=== PATIENT | female | born 1990 | race Caucasian/White ===

== ENCOUNTER 2018-03-20 13:04 | Inpatient (IN) | payer BC ==
[2018-03-20 13:27] VITALS: BMI 30.1
[2018-03-20] MEDS ORDERED: Butorphanol Tartrate 1 MG/ML VIAL SLOW IVP PRN (14:49)
[2018-03-20] MEDS ORDERED: Ondansetron HCl/PF 4 MG/2 ML Vial IVP PRN ×3 (14:49→15:28)
[2018-03-20] MEDS ORDERED: Ibuprofen 800 MG TAB PO PRN (14:49)
[2018-03-20] MEDS ORDERED: Lidocaine 1% (PF) 30 ML VIAL SC PRN (14:49)
[2018-03-20] MEDS ORDERED: NS / Oxytocin 40 units/1000ml 1,000 ML IV PRN (14:49)
[2018-03-20 14:56] LABS: Hemoglobin 12.3 g/dL (12.0-16.0); Mean Corpuscular HGB CONC 33.8 g/dL (32.0-36.0); Mean Corpuscular Hemoglobin 30.3 pg (27.0-31.0); Mean Corpuscular Volume 89.7 fL (78.0-98.0); Mean Platelet Volume 8.5 fL (7.4-10.4); Platelet Count 247 thou/uL (130-400); RBC Distribution Width 12.2 % (11.5-14.5); Red Blood Cell (RBC) Count 4.04 mill/uL (4.20-5.40); White Blood Cell (WBC) Count 17.2 thou/uL (4.8-10.8)
[2018-03-20] MEDS ORDERED: Fentanyl 4 mcg/Bup 0.1% Cadd 100 ML ONE ×2 (14:58→22:22)
[2018-03-20] MEDS ORDERED: Lactated Ringer's 1,000 ML IV SCH (15:00)
[2018-03-20 15:27] LABS: HBSAg Index 0.18 S/CO (0-0.99); Hep B Surf Ag Non-Reactive S/CO (NonReactive); Syphilis Antibody Nonreactive (Nonreactive); Syphilis Antibody Index 0.04 S/CO (<1.00 Non-Reactive)
[2018-03-20] MEDS ORDERED: ePHEDrine/0.9% NaCl/PF SYRINGE 50 mg/10 ml SLOW IVP PRN ×2 (15:28)
[2018-03-20] MEDS ORDERED: diphenhydrAMINE 50 MG/ML VIAL IVP PRN ×2 (15:28)
[2018-03-20] MEDS ORDERED: Naloxone HCl 0.4 mg/ml Vial IVP PRN ×4 (15:28)
[2018-03-20] MEDS ORDERED: Promethazine HCl 25 MG/ML VIAL IM PRN ×2 (15:28)
[2018-03-20] MEDS ORDERED: Lactated Ringer's 500 ML IV PRN ×2 (15:28)
[2018-03-20] MEDS ORDERED: Acetaminophen 325 MG TAB PO PRN ×2 (15:28)
[2018-03-20] MEDS ORDERED: Eucerin (Mineral Oil/Petrolatum,White) 30 gm Jar TOP PRN ×2 (15:28)
[2018-03-20] MEDS ORDERED: Fentanyl 4 mcg/Bupivacaine 0.1% Cassette 100 ML EPIDURAL SCH (15:30)
[2018-03-20] MEDS ORDERED: Communication Order-Pharmacy FS SCH ×2 (15:30)
--- NOTE | 2018-03-20 15:55 | PDOC.LDHP ---
Labor and Delivery H&P Chief complaint: contractions HPI: 28 yo G1 @ 40w4d by LMP c/w 8 week CRL. Antepartum course benign. Current gestational age (weeks): 40 Due date: 03/16/18 Dating criteria: last menstrual period Grav: 1 Para: 0 Current complications: none Abnormal US findings: No Past Medical History: Denies Current medications: pre-emmanuel vitamins Previous surgical history: none Allergies/Adverse Reactions: Allergies Allergy/AdvReac Type Severity Reaction Status Date / Time No Known Allergies Allergy Verified 03/20/18 13:28 Social history: none - Physical Exam Vital signs reviewed and normal: yes General: NAD Heart: RRR Lungs: CTAB Abdomen: gravid Extremeties: no edema FHT: category 1 (150s, mod tegan, occasional varaible decels that resolve) [place] contractions every: q3-4 min - Vaginal Exam cm dilated: 4 (cephalic) Effacement: 75% Station: -1 - OB Labs Blood type: A RH: positive Antibody Screen: negative HIV: negative RPR: negative HEPSAg: negative 1 hour GCT: negative GBS: negative Urine drug screen: not done Rubella: immune Additional Labs: SS wnl - Assessment 40w4d IUP Latent labor - Plan Plan: admit to L&D, labor augmentation if indicated (start pitocin), informed consent obtained, anesthesia consult for pain management
[2018-03-20] MEDS ORDERED: NS w/ Oxytocin 10 units 500 ML IV SCH (17:00)
[2018-03-20] MEDS: Lactated Ringer's 1,000 ML IV SCH ×2 (17:16→22:00)
[2018-03-21] MEDS ORDERED: CEFAZOLIN/Water 2 GM/20 ML SYRINGE ONE (05:18)
--- NOTE | 2018-03-21 05:21 | PDOC.LDPN ---
Labor & Delivery Progress Note - Subjective Subjective: comfortable - Objective Vital signs reviewed and normal: yes General: NAD Uterine fundus: non tender Dilation: 10 Effacement: 100% Station: 2+ FHT: category 2 (170s, min tegan, late decels, no acels ) [place] contractions every: q2-3 min Resuscitative measures: maternal oxygen, maternal IV fluids, maternal position change - Assessment (1) 40 weeks gestation of Code(s): Z3A.40 - 40 WEEKS GESTATION OF Current Visit: Yes Status : Acute (2) Prolonged second stage (of labor) Code(s): O63.1 - PROLONGED SECOND STAGE (OF LABOR) Current Visit: Yes Status : Acute (3) Non-reassuring heart rate with late deceleration Code(s): O36.8390 - MATERN CARE FOR ABNLT FETL HRT RATE OR RHYM, UNSP TRI, UNSP Current Visit: Yes Status: Acute -: Reviewed with pt protracted labor course and now prolonged second stage with maternal exhaustion. Due to cat 2 tracing, recommended more expedited delivery. Forceps attempted to be placed after discussion with pt of options and R/B/A/I of each, however, will not articulate properly, like due to slight asynclytic OP position. Due to this, forceps not performed and PLTCS recommended. Pt amenable. Ancef and Azithromycin for PPX.
[2018-03-21] MEDS ORDERED: Methylergonovine 0.2 MG/ML VIAL IM PRN ×2 (05:28→10:12)
[2018-03-21] MEDS ORDERED: Carboprost 250 MCG/ML AMP IM PRN (05:28)
[2018-03-21] MEDS ORDERED: Bupivacaine 0.5% 10 ML VIAL ONE (05:28)
[2018-03-21] MEDS ORDERED: Azithromycin 500 MG in Sodium Chloride 0.9% 250 ML 250 ML IVPB SCH (05:30)
[2018-03-21] MEDS ORDERED: CEFAZOLIN/Water 2 GM/20 ML SYRINGE SLOW IVP SCH (05:30)
[2018-03-21] MEDS ORDERED: Ondansetron HCl/PF 4 MG/2 ML Vial ONE (05:36)
[2018-03-21] MEDS ORDERED: Oxytocin 10 UNITS/ML VIAL ONE ×3 (05:36→05:59)
[2018-03-21] MEDS ORDERED: Morphine PF 1 MG/ML SYR ONE (05:36)
[2018-03-21] MEDS ORDERED: PHENYLEPHRINE-NS 100 MCG/ML 10 ML SYRINGE ONE (05:36)
[2018-03-21] MEDS ORDERED: Promethazine HCl 25 MG/ML VIAL IM PRN (05:55)
[2018-03-21] MEDS ORDERED: diphenhydrAMINE 50 MG/ML VIAL IVP PRN (05:55)
[2018-03-21] MEDS ORDERED: Eucerin (Mineral Oil/Petrolatum,White) 30 gm Jar TOP PRN (05:55)
[2018-03-21] MEDS ORDERED: Meperidine HCl/PF 25 MG/ML VIAL SLOW IVP PRN (05:55)
[2018-03-21] MEDS ORDERED: Promethazine HCl 25 MG SUPP PR PRN (05:55)
[2018-03-21] MEDS ORDERED: L&D-Morphine 4 MG/ML VIAL SLOW IVP PRN (05:55)
[2018-03-21] MEDS ORDERED: Ketorolac Tromethamine 30 MG/ML VIAL IVP PRN (05:55)
[2018-03-21] MEDS ORDERED: HYDROmorphone 2 MG/ML VIAL SLOW IVP PRN (05:55)
[2018-03-21] MEDS ORDERED: Naloxone HCl 0.4 mg/ml Vial IV PRN (05:55)
[2018-03-21] MEDS ORDERED: Naloxone HCl 0.4 mg/ml Vial IVP PRN ×2 (05:55)
[2018-03-21] MEDS ORDERED: Methylergonovine 0.2 MG/ML VIAL ONE (05:56)
[2018-03-21] MEDS ORDERED: Ketorolac Tromethamine 30 MG/ML VIAL IVP SCH (06:00)
[2018-03-21] MEDS ORDERED: Communication Order-Pharmacy FS SCH (06:00)
[2018-03-21 06:14] LABS: Actual Bicarbonate (HCO3v) 20 mEq/L (22-28); Analyzer IN Cardio OR; Base Excess -4.9 mEq/L (-2.0 to +3.0); pH (Cord, venous) 7.34 (7.32-7.43)
--- NOTE | 2018-03-21 06:37 | PDOC.OPDEL ---
OB Operative/Delivery Note Delivery Dr/Surgeon: Maria Elena Nash DO Assist: Armando Merchant MD Pre-Delivery Diagnosis: non-reassuring tracing, other (arrest of descent) Weeks gestation: 40 Anesthesia: epidural - Findings A Sex: male - 1 min: 8 - 5 min: 9 - Additional Findings/Plan Placenta delivered: spontaneous findings: low transverse hysterotomy without extension, normal uterus, normal tubes, normal ovaries Estimated blood loss: QBL 825 cc Compilations/Other Findings: in ROP position, nuchal cord x1, thick meconium stained amniotic fluid Post delivery plan: routine recovery
--- NOTE | 2018-03-21 08:17 | OP ---
DATE OF PROCEDURE: 03/21/2018 PREOPERATIVE DIAGNOSES: 1. 40-week intrauterine . 2. Protracted second stage of labor with arrest of descent. 3. Nonreassuring heart tones with concern for impending compromise. POSTOPERATIVE DIAGNOSES: 1. 40-week intrauterine . 2. Protracted second stage of labor with arrest of descent. 3. Nonreassuring heart tones with concern for impending compromise. SURGEON: Maria Elena Nash D.O. EDUCATION SITE MANAGER: Armando Merchant M.D. PROCEDURE: Primary low transverse delivery via Pfannenstiel skin incision. ESTIMATED BLOOD LOSS: QBL: * COMPLICATIONS: None. ANESTHESIA: Epidural with Duramorph. FINDINGS: Viable female in a right occiput posterior position with a nuchal cord x1 and thick meconium stained amniotic fluid. Apgars 8 and 9 and weighing 8 pounds and 5 ounces. Normal appearing uterus, fallopian tubes and ovaries and normal appearing placenta. INDICATIONS FOR THE PROCEDURE: Ms. Liset Minor is a 28-year-old G1, P0 at 40 weeks and 4 days, w ho presented in active labor with spontaneous rupture of membrane. The patient underwent augmentatio n periodically to achieve the second stage of labor. She had maternal pushing efforts for 2-1/2 plus hours with some advancement; however, still remote from delivery. The patient was counseled and a t rial of forceps application was attempted; however, the forceps would not articulate and therefore th is procedure was not performed due to the heart tones and still likely remote from delivery. T he patient was counseled and a primary delivery was recommended. The patient was amenable t o the procedure. PROCEDURE IN DETAIL: The patient was brought to the operating room. She already had an epidural ane sthesia. She was placed in supine position and a Harris catheter was already in place. She was prepp ed and draped in a sterile fashion. An official timeout was performed. She was given Ancef preopera tively for surgical prophylaxis and will receive azithromycin as well. The anesthesia was assessed a nd proved to be adequate. A Pfannenstiel skin incision was made using the scalpel, this was carried down to underlying fascial layer. The fascia was incised in the midline was extended bilaterally usi ng Doe scissors. Superior aspect of the fascial incision was grasped using Armida clamps, tented up paz and dissected free from the underlying rectus abdominis muscles and the same was performed to th e inferior aspect of fascial incision. The rectus abdominis muscles were bluntly . The per itoneum was entered and using blunt dissection this incision was extended using both sharp and blunt dissection. An Richard O retractor was then placed into the abdomen and appropriately secured. A low transverse hysterotomy was made using the scalpel, this was extended using blunt dissection. The am niotic ____ ruptured, extension of the hysterotomy noting thick meconium stained amniotic fluid. Inf ant was delivered without difficulty in cephalic presentation, occiput posterior position and noting a nuchal cord. 's cord was clamped and cut. The infant was handed to the waiting Neonatology team. Cord sample and cord blood were obtained. The cord gases were normal. The placenta was deliv ered spontaneously intact. The uterus was cleared of all clot and debris. Hysterotomy was closed in a running locked fashion. An imbrication layer was also placed both using Monocryl. Hysterotomy wa s hemostatic after closure. The pelvis was irrigated and cleared of all clot and debris. The bilate ral ovaries and fallopian tubes were evaluated and appeared normal. The Richard O retractor was remov ed from the abdomen. The peritoneum was then closed in a running fashion using 2-0 chromic. The rec tus abdominis muscles were evaluated and hemostatic. The fascia was closed using 0 PDS. Subcutaneou s layer was copiously irrigated and hemostatic with the use of the Bovie. Subcutaneous layer was denise sed using 3-0 Vicryl, and the skin was closed using a 4-0 Monocryl and Dermabond. The patient tolera chai the procedure well. There were no complications. All counts were correct x3. Mother and baby w ill be transferred to routine recovery.
[2018-03-21] MEDS: Lactated Ringer's 1,000 ML IV SCH ×3 (09:23→18:17)
[2018-03-21] MEDS ORDERED: Simethicone Chewable 80 MG TAB PO PRN (10:12)
[2018-03-21] MEDS ORDERED: Ondansetron HCl/PF 4 MG/2 ML Vial IVP PRN (10:12)
[2018-03-21] MEDS ORDERED: Bisacodyl 10 MG SUPP PR PRN (10:12)
[2018-03-21] MEDS ORDERED: NS / Oxytocin 40 units/1000ml 1,000 ML IV SCH (10:12)
[2018-03-21] MEDS ORDERED: HYDROcodone/Acetaminophen 5/325 mg Tablet PO PRN (10:12)
[2018-03-21] MEDS ORDERED: Misoprostol 200 MCG TAB PR PRN (10:12)
[2018-03-21] MEDS ORDERED: diphenhydrAMINE 25 MG CAP PO PRN (10:12)
--- NOTE | 2018-03-21 10:46 | OP ---
DATE OF PROCEDURE: 03/21/2018 The patient is a 28-year-old female who underwent a primary for failure to descend and nonr eassuring heart tones. PRIMARY SURGEON: Dr. Maria Elena Nash I functioned as oral surgery assistant to her with this . For complete details, please refer to her operative note.
[2018-03-21] MEDS: Ketorolac Tromethamine 30 MG/ML VIAL IVP PRN ×2 (12:02→18:17)
[2018-03-21] MEDS: Ferrous Sulfate 325 MG TAB PO SCH (19:07)
[2018-03-21] MEDS ORDERED: Sodium Chloride 0.9% 0 ML ONE (19:08)
[2018-03-21] MEDS: Docusate Calcium (SURFAK) 240 MG CAP PO SCH (20:51)
[2018-03-22] MEDS: Prenatal Vitamin 1 TAB PO SCH (09:20)
[2018-03-22] MEDS: Docusate Calcium (SURFAK) 240 MG CAP PO SCH ×2 (09:20→21:56)
[2018-03-22] MEDS: Ibuprofen 800 MG TAB PO SCH ×3 (13:05→21:56)
[2018-03-22] MEDS: HYDROcodone/Acetaminophen 5/325 mg Tablet PO PRN ×3 (13:05→23:59)
[2018-03-22] MEDS: Lactated Ringer's 1,000 ML IV SCH ×2 (14:56→15:00)
[2018-03-22] MEDS: Ferrous Sulfate 325 MG TAB PO SCH ×2 (14:58→21:57)
[2018-03-22 17:13] LABS: Band 14 % (5-11); Eosinophils 1 % (0-10); Hemoglobin 10.1 g/dL (12.0-16.0); Lymphocytes 9 % (21-51); MDiff Complete? YES; Mean Corpuscular HGB CONC 31.8 g/dL (32.0-36.0); Mean Corpuscular Hemoglobin 30.3 pg (27.0-31.0); Mean Corpuscular Volume 95.4 fL (78.0-98.0); Mean Platelet Volume 8.5 fL (7.4-10.4); Monocytes 2 % (0-10); Neutrophil 74 % (42-75); PLT Morphology Comment Appears Adequate; Platelet Count 195 thou/uL (130-400); RBC Distribution Width 12.8 % (11.5-14.5); Red Blood Cell (RBC) Count 3.33 mill/uL (4.20-5.40); White Blood Cell (WBC) Count 17.1 thou/uL (4.8-10.8)
[2018-03-23] MEDS: Lactated Ringer's 1,000 ML IV SCH ×2 (00:38→08:55)
[2018-03-23] MEDS: Ibuprofen 800 MG TAB PO SCH (06:17)
[2018-03-23 06:35] VITALS: BP 120/74; TEMP 97.6
[2018-03-23] MEDS: HYDROcodone/Acetaminophen 5/325 mg Tablet PO PRN ×2 (06:40→10:56)
--- NOTE | 2018-03-23 08:37 | DIS ---
DATE OF ENCOUNTER: 03/23/2018 DATE OF ADMISSION: 03/20/2018 DATE OF DISCHARGE: 03/23/2018 ADMITTING DIAGNOSIS: Intrauterine at 40 weeks and 4 days, in latent labor. DISCHARGE DIAGNOSIS: Status post a primary . PROCEDURE: Primary . CONSULTATIONS: None. HOSPITAL COURSE: Patient is a 28-year-old G1, now P1 female, who presented to labor and delivery at 40 weeks and 4 days in latent labor and was admitted for augmentation. Her labor course resulted in a primary for failure to descend. Please refer to the operative note for complete details. Her postoperative course has been uncomplicated. She is now postoperative day #2. She reports jose l t she is tolerating p.o., voiding on her own, having good pain control, and decreased lochia, and has expressed interest in discharge today. PHYSICAL EXAMINATION: VITAL SIGNS: This morning, blood pressure is 120/74, temperature 97.6, pulse is 76, respiratory rate of 18. GENERAL: The patient appears to be in no acute distress. She is alert and oriented, cooperative and pleasant to interact with. HEAD: Normocephalic, atraumatic. ABDOMEN: Soft, appropriately tender. Fundus is firm. Incision is clean, dry, and intact. EXTREMITIES: Nontender with minimal edema and symmetrical. LABORATORY DATA: Postdelivery hemoglobin is 10.1, hematocrit 31.7, platelets 195,000. The patient will be discharged to home with ibuprofen 800 mg to be taken 3 times a day as needed for pain and tramadol 50 mg 1-2 tablets to be taken by mouth every 4 hours as needed for pain, #20. She has instructions to follow up with her primary OB in 2 weeks for an incision check and 6 weeks for ro utine visit. She has instructions also to seek medical attention should she experience in creasing pain, bleeding, fever, redness or drainage from the incision site.
[2018-03-23] MEDS: Docusate Calcium (SURFAK) 240 MG CAP PO SCH (09:26)
[2018-03-23] MEDS: Prenatal Vitamin 1 TAB PO SCH (09:26)
[2018-03-23] MEDS: Ferrous Sulfate 325 MG TAB PO SCH (09:35)
== END 2018-03-23 11:08 | disposition home or self-care (01) | DRG 788 ==
LOC: L&D/OP 13:04 → L&D 13:54 → 3SW 03-21 10:40
PROVIDERS: ADMIT Emergency Medicine; ATTEND Emergency Medicine
PROC: 10D00Z1 Extraction of Products of Conception, Low, Open Approach (ICD-10-PCS; principal; 2018-03-20)
DX: O32.4XX0 Maternal care for high head at term, not applicable or unspecified (principal); O62.0 Primary inadequate contractions; O76 Abnormality in fetal heart rate and rhythm complicating labor and delivery; Z3A.40 40 weeks gestation of pregnancy; O63.1 Prolonged second stage (of labor); O69.1XX0 Labor and delivery complicated by cord around neck, with compression, not applicable or unspecified
CPT/HCPCS: 51702; 82805; 85025; 85027; 86780; 87340; 99285; J0456; J1885; J2001; J2210; J2274; J2405; J2590; J3490; J7050

== ENCOUNTER 2019-08-01 13:12 | Outpatient (CLI) | payer BC ==
--- NOTE | 2019-08-05 09:39 | EKG ---
Test Reason : C/P CK RHYTHM Blood Pressure : / mmHG Vent. Rate : 067 BPM Atrial Rate : 067 BPM P-R Int : 118 ms QRS Dur : 088 ms QT Int : 424 ms P-R-T Axes : 044 062 025 degrees QTc Int : 448 ms Normal sinus rhythm Normal ECG Confirmed by DAPHNE DRAPER ([id number]) on 08/05/2019 9:39:13 AM Referred By: LISA Confirmed By:DAPHNE DRAPER
== END 2019-08-01 13:13 | disposition home or self-care (01) ==
LOC: EKG 13:12
PROVIDERS: ATTEND Obstetrics & Gynecology
DX: R07.9 Chest pain, unspecified (principal)
CPT/HCPCS: 93005; 93010